=== PATIENT | female | born 1935 | race Asian ===

== ENCOUNTER 2019-09-04 20:26 | Emergency (ER) | payer BC ==
[~2019-09-04] VITALS: Ht 162.6 cm; Wt 61.2 kg
[2019-09-04 20:38] VITALS: Ht 162.6 cm; Wt 61.2 kg
[2019-09-04 22:44] LABS: BASOPHIL % 0.1 % (0-2); PLATELET COUNT 313 x10^3mcL (130-400)
[2019-09-04 22:45] LABS: RED CELL DISTRIBUTION WIDTH 20.9 % (11.5-14.5)
[2019-09-04 22:53] LABS: CALCIUM 9.4 mg/dL (8.5-10.1); CARBON DIOXIDE 32.3 mmol/L (21-32); CHLORIDE SERUM 101 mmol/L (98-107); CREATININE SERUM 1.1 mg/dL (0.6-1.0); GLUCOSE SERUM 133 mg/dL (74-106); POTASSIUM SERUM 4.4 mmol/L (3.5-5.1); SODIUM SERUM 138 mmol/L (136-145)
[2019-09-04 22:59] LABS: ALKALINE PHOSPHATASE 100 U/L (46-116); ALT/SGPT 29 U/L (14-59); AST/SGOT 283 U/L (15-37); BILIRUBIN TOTAL 1.57 mg/dL (0.20-1.00); LIPASE 197 IU/L (73-393); TOTAL PROTEIN, SERUM 7.1 g/dL (6.4-8.2)
[2019-09-04 23:00] LABS: ALBUMIN 2.3 g/dL (3.4-5.0)
[2019-09-05 05:46] VITALS: BP 159/69
== END 2019-09-05 05:46 | disposition left against medical advice (07) ==
LOC: ED 20:26
PROVIDERS: Emergency Medicine
DX: R53.1 Weakness (principal); I10 Essential (primary) hypertension; E11.9 Type 2 diabetes mellitus without complications; W01.0XXA Fall on same level from slipping, tripping and stumbling without subsequent striking against object, initial encounter; Y93.89 Activity, other specified; Y92.89 Other specified places as the place of occurrence of the external cause; Y99.8 Other external cause status
CPT/HCPCS: 36415; 83880; J7040